=== PATIENT | male | born 1960 | race Caucasian/White ===

== ENCOUNTER → 2020-04-18 | Outpatient (CLI) | payer OTHER ==
[~2020-04-18] MED LIST: CIPRO500 M1 PO; COLACE100 MG PO; DOXEPIN HC10 MG/1 ML PO; FLAGYL500 MG PO; FLOMAX0.4 MG PO; FLONASE 0.05%50 MCG; MELOXICAM15 MG PO; PERCOCET 5-3251 EACH PO; PERCOCET 7.5-31 EACH PO; ZANAFLEX2 M1
== END ==
LOC: M.PC 09:50
PROVIDERS: ATTEND Physical Medicine & Rehabilitation
DX: M19.032 Primary osteoarthritis, left wrist (principal); M25.832 Other specified joint disorders, left wrist; M47.26 Other spondylosis with radiculopathy, lumbar region; M48.061 Spinal stenosis, lumbar region without neurogenic claudication; M62.830 Muscle spasm of back; Z68.45 Body mass index [BMI] 70 or greater, adult